=== PATIENT | female | born 1965 | race Hispanic/Latino ===

== ENCOUNTER 2016-12-05 08:54 | Outpatient (CLI) | payer OTHER ==
[2016-12-05] MEDS ORDERED: Iopamidol 370 76% 100 ML VIAL ONE (10:02)
--- NOTE | 2016-12-05 12:04 | CT ---
CT OF THE ABDOMEN AND PELVIS WITH CONTRAST: Date: 12/05/16 HISTORY: Right lower quadrant pain. COMPARISON: None. FINDINGS: Lung bases are clear. No pericardial effusion. Prior cholecystectomy. Spleen, pancreas, and adrenal glands are unremarkable. The appendix contains gas without significant periappendiceal stranding. There is mild thickening of the cecal apex. No dilated loops of large or small bowel. Aortoiliac con tour is normal. The adrenal glands are normal. Kidneys are without hydronephrosis. Urinary bladder is unremarkable. Mild narrowing of left hip joints. IMPRESSION: 1. Mild thickening and enhancement of the cecal apex. This may be infectious or inflammatory, altho ugh malignancy cannot be totally excluded. Follow-up emergent colonoscopy is recommended. Best seen on series 300, image 54. 2. No acute inflammatory process in abdomen or pelvis. Appendix has gas within it and is without si gnificant inflammation. 3. Prior cholecystectomy. CODE T. POS: [facility]
== END 2016-12-05 08:55 | disposition home or self-care (01) ==
LOC: MADCT 08:54
PROVIDERS: ATTEND Family Medicine
DX: R10.31 Right lower quadrant pain (principal); K63.89 Other specified diseases of intestine; Z90.49 Acquired absence of other specified parts of digestive tract
CPT/HCPCS: 74177

== ENCOUNTER 2017-01-27 11:08 | Outpatient (CLI) | payer OTHER | END 2017-01-27 11:09 | disposition home or self-care (01) | LOC: MADLABBHPM 11:08 | PROVIDERS: ATTEND Family Medicine | DX: N30.00 Acute cystitis without hematuria (principal) | CPT/HCPCS: 36415; 87077; 87086; 87186 ==